=== PATIENT | female | born 1990 | race Two or more races ===

== ENCOUNTER 2024-09-18 00:26 | Emergency (ER) | payer SELFPAY ==
[2024-09-18 00:30] VITALS: BP 136/90; PULSE 106; RESP 18; TEMP 36.7; O2SAT 97; BMI 28.3
--- NOTE | 2024-09-18 00:49 | EDNOTE_ITS ---
<Statement entered by Aretha Goodson MD - 09/18/24 05:12> As co-signing physician, I was present and available for consult prn. I concur with the plan and care as documented by the midlevel provider. ED Medical Clearance RME/HPI General Chief complaint: Medical Clearance Stated complaint: [facility] CHECK Time Seen by Provider: 09/18/24 00:46 Arrival date/time: 09/18/24 00:26 34 year old female present to emergency room via PD for senior care clearance. Pt denies any complaint. no blood thinner uses. CONTEXT: The patient is unable to identify any inciting events. DURATION/TIMING: The symptoms started approximately [employer] SYMPTOMS: The patient is unable to identify any other associated symptoms. MODIFYING FACTORS: The patient is unable to identify any alleviating or aggravating symptoms. PERTINENT ROS: no fevers, no cough, no chest pain/shortness of breath no nausea,vomiting, diarrhea, no dizziness/headache no rash no loc/syncope episode no abd/back pain REVIEW OF SYSTEMS: See History of Present Illness - with the exception of those mentioned in the history of present illness, all other systems reviewed and reported as negative GENERAL: In general the patient is awake, interactive, in an emergency department gurney. HEAD/EYES/EARS/NOSE/THROAT: normo-cephalic, atraumatic, mucus membranes are moist, anicteric, palpebral conjunctiva is pink, trachea is midline. CARDIOVASCULAR: regular rate and regular rhythm, no murmurs, heart sounds are not distant, strong pulses in all four extremities that are equal and symmetric bilateral upper and lower extremities, normal capillary refill. CHEST/PULMONARY: normal chest rise and fall, good air movement, clear to au scultation bilaterally, normal inspiratory to expiratory ratios without evidence of respiratory distress. NECK: No midline/Paraspinal tenderness, no step off ROM/Strenght intact No Kernig and bruzinski sign. No trauma ABDOMEN: soft, not tender, no masses appreciated BACK: normal range of motion without pain. NEUROLOGICAL: cranio-facial features are symmetric, moves all four extremities equally without obvious limitations or weakness. EXTREMITY: no tenderness to palpation over the long bones or large joints of the bilateral upper and lower extremities, no joint swelling, no joint erythema, no signs of trauma, no unilateral leg swelling and no peripheral edema. SKIN: warm, dry, well-perfused, no jaundice, no rash, no telangiectasias or petechia. PSYCH: calm, cooperative, no evidence of psychosis or agitation Related Information Home Medications ?Medication ?Instructions ?Recorded ?Confirmed No Known Home Medications 09/11/19 06/14/20 Allergies Allergy/AdvReac Type Severity Reaction Status Date / Time No Known Allergies Allergy Verified 06/14/20 11:38 Course Course Course Narrative: pt is medically cleared vital sign wnl Quality Measures none Vital Signs Vital signs: Vital Signs Temperature 98.1 F 09/18/24 00:30 Pulse Rate 106 H 09/18/24 00:30 Respiratory Rate 18 09/18/24 00:30 Blood Pressure 136/90 H 09/18/24 00:30 Pulse Oximetry (%) 97 09/18/24 00:30 Oxygen Delivery Method Room Air 09/18/24 00:30 Medical Clearance Patient data External records reviewed:: None Clinical information provided by:: patient Social determinants that could affect healthcare access:: none Patient has the following chronic illnesses:: none How is presenting disease/condition affected by chronic disease/condition?: no chronic disease Evaluation data The following diagnostics were reviewed and interpreted by me:: other (specify) (none ) Lab and/or radiology exams considered but not ordered:: none Interpretation Summary: none Medications / Prescriptions Medications or Prescriptions considered but not ordered:: none Medication administrations:: none Consultations Consultation(s) initiated? (list below): No Diagnosis Medical Clearance Differential Diagnosis: other (medical clearance, MVA) Most likely diagnosis given after review of the tests above:: medical clearance Admission Indicated Admission indicated?: not indicated Admission Request Was there a request for admission?: No Disposition Plan Disposition Plan: Discharge Discharge Attestation Discharge Attestation: The patient and all family members were given an opportunity to ask questions and understood the discharge instructions. Discharge instructions specifically effects, indications for sooner follow up or return to the emergency department, and the expected course of current diagnosis. Patient condition: Stable Discharge Plan Plan Patient Disposition: Long Term/Court/Law Health Concerns: pt is medical cleared for senior care Prescriptions/Referrals Prescriptions/Med Rec: No Action No Known Home Medications Problem List Clinical Impression: Medical clearance for incarceration Patient/Caregiver Discharge Instructions Education Materials: ED Medical Screening Exam, Nonemergent Print Language: Egyptian Stand Alone Forms: [facility]by Award Info., Patient Portal Info Letter
== END 2024-09-18 01:35 ==
PROVIDERS: Emergency Provider Emergency Medicine
DX: Z02.89 Encounter for other administrative examinations (principal)
CPT/HCPCS: 99281

== ENCOUNTER 2025-08-04 00:47 | Emergency (ER) | payer MEDICAID, SELFPAY ==
[2025-08-04 00:48] VITALS: BP 146/96; PULSE 96; RESP 18; TEMP 36.7; O2SAT 98; BMI 30.2
[2025-08-04] MEDS: HYDROcodone/APAP 5/325 TABLET 1 TAB PO (01:31)
--- NOTE | 2025-08-04 02:03 | PD.EDDENTL ---
ED Dental RME/HPI General Chief complaint: Dental/Oral/Throat Stated complaint: L UPPER MOLAR PAIN Time Seen by Provider: 08/04/25 01:19 Arrival date/time: 08/04/25 00:47 35F with no significant PMH presents to ED with L upper molar pain. Patient went to dentist today, who sent pain meds and ABX, but pharmacy was closed by the time she got there. Tylenol/ibuprofen have not provided much relief. Limitations: no limitations Related Data Home Medications ?Medication ?Instructions ?Recorded ?Confirmed No Known Home Medications 09/11/19 06/14/20 Allergies Allergy/AdvReac Type Severity Reaction Status Date / Time No Known Allergies Allergy Verified 08/04/25 00:52 Review of Systems Review of Systems Systems Reviewed: All systems reviewed, normal except as documented ENT Ears, Nose, Mouth, and Throat: Reports as per HPI and Reports dental pain Past Medical History Past Medical History NEUROLOGIC: Negative Neurological Disorders or Seizures CARDIAC: Negative Cardiac Disorders or Congestive Heart Failure RESPIRATORY: Negative Chronic Obstructive Pulmonary Disease (COPD) GASTROINTESTINAL: Positive Gastrointestinal Disorders and Obesity GENITOURINARY: Negative Genitourinary Disorders or Renal Disease REPRODUCTIVE: Positive Previous Pregnancies (x2) MUSCULOSKELETAL: Negative Musculoskeletal Disorders ENDOCRINE: Negative Endocrine Disorders, Diabetes Mellitus Type 1 or Diabetes Mellitus Type 2 HEMATOLOGIC: Negative Blood Disorders or Anemia OTHER HISTORY: Positive Chicken Pox; Negative Autoimmune Disease, Blood Transfusions or Anesthesia Reactions Surgical History SURGICAL: Positive Section (X2) Social History SMOKING STATUS: Never smoker ED Exam General Limitations: Present no limitations General appearance: Present alert and in no apparent distress Head Head exam: Present atraumatic ENT ENT exam: Present normal exam, normal oropharynx and mucous membranes moist Neck Neck exam: Present normal inspection, full ROM and trachea midline Neurological Exam Neurological exam: Present alert and oriented X3 Psychiatric Psychiatric exam: Present normal affect and normal mood Skin Skin exam: Present warm, dry, intact and normal color Course Quality Measures none Orders Category Date Time Status HYDROcodone*/APAP 5/325 [Emmet 5/325] Med 08/04/25 01:19 Discontinued 1 tab PO X1 ONE Vital Signs Vital signs: Vital Signs Temperature 98.1 F 08/04/25 00:48 Pulse Rate 96 08/04/25 00:48 Respiratory Rate 18 08/04/25 00:48 Blood Pressure 146/96 H 08/04/25 00:48 Pulse Oximetry (%) 98 08/04/25 00:48 Oxygen Delivery Method Room Air 08/04/25 00:48 O2 at 98% on RA and WNLs Dental / Oral MDM Narrative MDM Narrative:: 35F with no significant PMH presents to ED with L upper molar pain. Patient went to dentist today, who sent pain meds and ABX, but pharmacy was closed by the time she got there. Tylenol/ibuprofen have not provided much relief. Physical exam reveals unremarkable dental exam. Patient is afebrile, alert, but appears uncomfortable. Meds and legal counsel given. Patient data External records reviewed:: [facility] previous records Clinical information provided by:: patient Social determinants that could affect healthcare access:: none Patient has the following chronic illnesses:: none How is presenting disease/condition affected by chronic disease/condition?: no chronic disease Evaluation data The following diagnostics were reviewed and interpreted by me:: other (specify) (none) Lab and/or radiology exams considered but not ordered:: not ordered Interpretation Summary: n/a Medications / Prescriptions Medications or Prescriptions considered but not ordered:: ordered Medication administrations:: Medication Administration History Discontinued Medications Hydrocodone Bitart/Acetaminophen (Hydrocodone/Apap 5/325 Tablet) 1 tab PO X1 ONE Stop: 08/04/25 01:20 Last Admin: 08/04/25 01:31 Dose: 1 tab Documented By: CB above Consultations Consultation(s) initiated? (list below): No Diagnosis Dental Differential Diagnosis: gingival abscess, dental caries, toothache, dental abscess, fracture of tooth and aphthous ulcer Most likely diagnosis given after review of the tests above:: toothache Admission Indicated Admission indicated?: not indicated Admission Request Was there a request for admission?: No Disposition Plan Disposition Plan: Discharge Discharge Attestation Discharge Attestation: The patient and all family members were given an opportunity to ask questions and understood the discharge instructions. Discharge instructions specifically effects, indications for sooner follow up or return to the emergency department, and the expected course of current diagnosis. Patient condition: Stable Discharge Plan Plan Patient Disposition: HOME (Self Care) Discharge Disposition comment: Stable Prescriptions/Referrals Prescriptions/Med Rec: No Action No Known Home Medications Problem List Clinical Impression: Toothache Patient/Caregiver Discharge Instructions Education Materials: ED Dental Pain Additional Instructions: Please follow-up with PCP within 24-48 hours and return immediately if symptoms worsen. health unit supervisor meds tomorrow. Print Language: Greenlandic Stand Alone Forms: Patient Portal Info Letter PA/SPACE ENGINEER Supervising Physician PA/SPACE ENGINEER Supervising Physician: Dr. Otero
== END 2025-08-04 01:35 | disposition home or self-care (01) ==
LOC: SERX 01:26
PROVIDERS: Emergency Provider Emergency Medicine
DX: K08.89 Other specified disorders of teeth and supporting structures (principal)
CPT/HCPCS: 99282; A9270